=== PATIENT | female | born 1970 | race Caucasian/White ===

== ENCOUNTER → 2021-04-05 | Outpatient (CLI) | payer BC ==
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
== END ==
LOC: SLEEP 14:57
PROVIDERS: ATTEND Internal Medicine Critical Care Medicine
DX: G47.10 Hypersomnia, unspecified (principal); E66.01 Morbid (severe) obesity due to excess calories; N18.30 Chronic kidney disease, stage 3 unspecified; Z68.42 Body mass index [BMI] 45.0-49.9, adult; Z85.038 Personal history of other malignant neoplasm of large intestine; Z90.49 Acquired absence of other specified parts of digestive tract; Z93.2 Ileostomy status; Z79.899 Other long term (current) drug therapy
CPT/HCPCS: 99202

== ENCOUNTER → 2021-11-29 | Outpatient (CLI) | payer BC ==
--- NOTE | 2021-11-29 14:00 | P.PN ---
Subjective Progress Note Date: 11/29/21 51-year-old female patient diagnosed having severe symptomatic obstructive sleep apnea. The patient is morbidly obese with a BMI 45.7. The patient is known to have colon cancer and chronic kidney disease. The patient underwent a polysomnogram and the patient was found to have severe PAULA with an AHI of 68. Subsequently, she was titrated to a CPAP pressure of 7 cm of water and she was given a full face mask, airfit F20. On today's evaluation, the patient is coming in for a compliance check. She has reported significant improvement in her clinical symptoms. Sleep quality is improved. The patient is waking up much more refreshed and alert during the day. Her story has subsided according to her . Nevertheless, on the compliance data, the patient continues to have high number of events. I checked the machine compliancy collected between 10/30/2021 on 11/28/2021. On those past 30 days, the patient is utilizing a flexographic printing machinist on average of 6 hours and 20 minutes. He uses of the machine for more than 4 hours is at 93%. Her AHI was as high as 66.8. No central events noted. Leak was minimal. As such, is quite confusing especially the patient is clinically feeling much better. She has lost about 6 months since her last evaluation. She has no specific complaints. No hypersomnia and sleepiness. She is going to bed at around 7 PM waking of the abdomen in morning and she is feeling refreshed. No headaches. She has turned off the humidification chamber through her machine. She has a ResMed 11. Objective - Exam BP is 103/69 with a pulse of 76 and respiration of 16 with a weight of 240 pounds and a temperature of 97 2 and the saturation is 94% on room air. Body mass index is 44.6. Gen. appearance the patient is obese and she is calm and comfortable The patient appeared well nourished and normally developed. Vital signs as documented. Head exam is unremarkable. No scleral icterus or corneal arcus noted. Neck is without jugular venous distension, thyromegaly, or carotid bruits. The patient has a Mallampati class IV. Carotid upstrokes are brisk bilaterally. Lungs are clear to auscultation and percussion. Cardiac exam reveals the PMI to be normally sized and situated. Rhythm is regular. First and second heart sounds normal. No murmurs, rubs or gallops. Abdominal exam reveals normal bowel sounds, no masses, no organomegaly and no aortic enlargement. Extremities are nonedematous and both femoral and pedal pulses are normal.Examination of the skin revealed no evidence of significant rashes, suspicious appearing nevi or other concerning lesions.Neurologically, the patient is awake and alert and the patient does not have any focal neurological deficit. Cranial nerves are essentially intact. Assessment and Plan Plan: Severe symptomatic obstructive sleep apnea with an AHI of 68. The patient has undergone successful CPAP titration. The patient is currently on a CPAP pressure of 7 cm of water and her symptoms improved considerably. Nevertheless, she continues to have a high number of events on her compliance data that was collected over the past 30 days. As such, his could be a machine recording at her as the patient is feeling much improved. Alternatively, the patient's pressure needs to be modified. Hypersomnia improved with CPAP therapy, currently reports going down to 4 Obesity current weight is down to 240 and the patient has lost about 6 months since her last evaluation Chronic kidney disease History of colon cancer with a previous colectomy and diverting colostomy Plan Recommend switching this patient in APAP mode at a pressure minimum of 5 and a maximum of 15 Monitor respiratory events while on treatment The patient will Be back of the respiratory events continued to be elevated. I do suspect a machine related recording at as the patient is currently much improved yet there is a high number of events on the compliancy data. We'll do the following changes and the patient will come in for short-term follow-up and decide if need to be switched to a new machine. Continue efforts to lose weight. Clinically improved. Keep same mask interface. We'll continue to follow.
== END ==
LOC: SLEEP 13:41
PROVIDERS: ATTEND Internal Medicine Critical Care Medicine
DX: G47.33 Obstructive sleep apnea (adult) (pediatric) (principal); E66.01 Morbid (severe) obesity due to excess calories; N18.9 Chronic kidney disease, unspecified; Z68.42 Body mass index [BMI] 45.0-49.9, adult; Z85.038 Personal history of other malignant neoplasm of large intestine; Z90.49 Acquired absence of other specified parts of digestive tract; Z93.3 Colostomy status